=== PATIENT | male | born 1955 | race Hispanic/Latino ===

== ENCOUNTER 2019-07-25 19:07 | Emergency (ER) | payer OTHER ==
--- NOTE | 2019-07-25 20:39 | Event Note ---
ED Screening Note ED Screening Note: sp fall yesterday w r side pain ambulatory nad This initial assessment/diagnostic orders/clinical plan/treatment(s) is/are subject to change based on patients health status, clinical progression and re- assessment by fellow clinical providers in the ED. Further treatment and workup at subsequent clinical providers discretion. Patient/guardian urged not to elope from the ED as their condition may be serious if not clinically assessed and managed. Initial orders include: needs exam in ACC
[2019-07-25] MEDS ORDERED: HYDROcodone/ACETAMINOPHEN 5-325 MG TAB PO ONE (21:33)
--- NOTE | 2019-07-25 21:40 | Emergency Department Report ---
ED Fall HPI - General Chief Complaint: Fall Stated Complaint: RT SIDE PAIN FROM FALL Time Seen by Provider: 07/25/19 20:03 Source: patient Mode of arrival: Ambulatory - History of Present Illness Initial Comments: 64-year-old male with history of hypertension and prostate cancer presents with complaints of right rib pain and headache after a fall around 3 AM last night. Patient states he slipped and fell in the bathroom and hitting his ribs on the side effects in his head on the floor. He denies any loss of consciousness, dizziness, chest pain/shortness of breath, numbness/tingling/weakness, neck pain, nausea/vomiting, vision changes, difficulty with ambulation, or abdominal pain. He rates his rib pain as a 10/10 in severity and states that worsens with deep inspiration. He rates his headache as a 7/10 in severity. He denies any blood thinners. MD Complaint: fall -: Sudden Fall Witnessed: no Place Fall Occurred: home Loss of Consciousness: none Prolonged Down Time?: no Symptoms Prior to Fall: none Location: head, other (right ribs) Associated Symptoms: denies: neck pain, numbness, weakness, chest paint, shortness of breath, abdominal pain, hematuria, lightheaded, vertigo, confusion - Related Data Previous Rx's Medication Instructions Recorded Last Taken Type Acetaminophen/Codeine [Tylenol 1 tab PO Q8H PRN #10 tab 07/26/19 Unknown Rx /Codeine # 3 tab] Naproxen [Naprosyn TAB] 500 mg PO BID PRN #14 tablet 07/26/19 Unknown Rx methOCARBAMOL [Robaxin TAB] 1,500 mg PO Q8H PRN #30 tablet 07/26/19 Unknown Rx Allergies Allergy/AdvReac Type Severity Reaction Status Date / Time No Known Allergies Allergy Unverified 07/25/19 19:36 ED Review of Systems ROS: Stated complaint: RT SIDE PAIN FROM FALL Other details as noted in HPI Constitutional: denies: chills, fever Eyes: denies: vision change ENT: denies: hearing loss, epistaxis Respiratory: denies: cough, shortness of breath Cardiovascular: denies: chest pain, palpitations, edema, syncope Gastrointestinal: denies: abdominal pain, nausea, vomiting, constipation Genitourinary: denies: frequency, hematuria Musculoskeletal: denies: back pain, joint swelling Skin: denies: rash, lesions Neurological: headache. denies: weakness, numbness, paresthesias, confusion, abnormal gait Psychiatric: denies: auditory hallucinations, visual hallucinations Hematological/Lymphatic: denies: easy bleeding, easy bruising ED Past Medical Hx - Past Medical History Previous Medical History?: Yes Hx Hypertension: Yes Hx of Cancer: Yes (Prostate) - Surgical History Past Surgical History?: Yes Additional Surgical History: Left humerus - Social History Smoking Status: Never Smoker Substance Use Type: None - Medications Home Medications: Home Medications Medication Instructions Recorded Confirmed Last Taken Type Acetaminophen/Codeine [Tylenol 1 tab PO Q8H PRN #10 tab 07/26/19 Unknown Rx /Codeine # 3 tab] Naproxen [Naprosyn TAB] 500 mg PO BID PRN #14 tablet 07/26/19 Unknown Rx methOCARBAMOL [Robaxin TAB] 1,500 mg PO Q8H PRN #30 tablet 07/26/19 Unknown Rx ED Physical Exam - General Limitations: No Limitations General appearance: alert, in no apparent distress - Head Head exam: Present: atraumatic, normocephalic - Eye Eye exam: Present: normal appearance, PERRL, EOMI. Absent: scleral icterus - Neck Neck exam: Present: normal inspection, full ROM. Absent: tenderness - Respiratory Respiratory exam: Present: normal lung sounds bilaterally, chest wall tenderness (tenderness to palpation noted of right lower lateral ribs. No bruising noted). Absent: respiratory distress - Cardiovascular Cardiovascular Exam: Present: regular rate, normal rhythm. Absent: systolic murmur, diastolic murmur, rubs, gallop - GI/Abdominal GI/Abdominal exam: Present: soft, normal bowel sounds. Absent: distended, tenderness, guarding, rebound, rigid - Extremities Exam Extremities exam: Present: normal inspection, full ROM. Absent: tenderness - Back Exam Back exam: Present: normal inspection. Absent: paraspinal tenderness, vertebral tenderness - Neurological Exam Neurological exam: Present: alert, oriented X3, normal gait. Absent: motor sensory deficit - Expanded Neurological Exam Expanded Speech: Present: fluid speech Cranial nerves: Facial Sensation: Normal Cerebellar function: Finger to Nose: Normal, Heel to Panye: Normal, Romberg: Normal Sensory exam: Upper Extremity Light Touch: Normal, Lower Extremity Light Touch: Normal Motor strength exam: RUE: 5 - Psychiatric Psychiatric exam: Present: normal affect, normal mood - Skin Skin exam: Present: warm, dry, intact, normal color. Absent: rash, cyanosis, ecchymosis ED Course Vital Signs 07/25/19 07/25/19 19:19 22:31 Temperature 98.7 F Pulse Rate 98 H 63 Respiratory 20 17 Rate Blood Pressure 184/89 Blood Pressure 162/78 [Left] O2 Sat by Pulse 97 100 Oximetry ED Medical Decision Making - Radiology Data Radiology results: report reviewed CT HEAD WITHOUT CONTRAST INDICATION: fall with head injury and headache. TECHNIQUE: All CT scans at this location are performed using CT dose reduction for ALARA by means of automated exposure control. COMPARISON: None available. FINDINGS: HEMORRHAGE: None. EXTRA-AXIAL SPACES: Normal in size and morphology for the patient's age. VENTRICULAR SYSTEM: Normal in size and morphology for the patient's age. BRAIN PARENCHYMA: No acute findings. MIDLINE SHIFT OR HERNIATION: None. ORBITS: Normal as visualized. SOFT TISSUES OF HEAD: Normal. CALVARIUM: Normal. VISUALIZED PARANASAL SINUSES AND MASTOID AIR CELLS: Clear. ADDITIONAL FINDINGS: None. IMPRESSION: 1. No acute intracranial abnormality. RIGHT RIB SERIES 5 VIEWS INDICATION: lateral rib pain after fall. COMPARISON: No relevant prior imaging study available. FINDINGS: On the included chest radiograph, no pulmonary contusion or hemopneumothorax is seen. There are mildly displaced fractures through the anterolateral right seventh- 11th ribs. IMPRESSION: 1. Mildly displaced anterolateral right seventh-11th rib fractures. - Medical Decision Making 64-year-old male with history of hypertension and prostate cancer presents with complaints of right rib pain and headache after a fall around 3 AM last night. Patient states he slipped and fell in the bathroom and hitting his ribs on the side effects in his head on the floor. CT head is negative for acute findings. Neuro exam is normal. Headache has completely resolved with meds given per pt. Rib x-ray shows Mildly displaced anterolateral right seventh- 11th rib fractures. Pulse ox is normal and patient is not tachycardic. Patient is nontoxic appearing and stable for discharge home. Recommend follow-up with orthopedics within 3 days. Discussed the importance of deep inspiration to prevent atelectasis and pneumonia. Also discussed very strict return precautions in detail with patient and patient's family who verbalize understanding. Critical care attestation.: If time is entered above; I have spent that time in minutes in the direct care of this critically ill patient, excluding procedure time. ED Disposition Clinical Impression: Ribs, multiple fractures Qualifiers: Encounter type: initial encounter Fracture type: closed Laterality: right Qualified Code(s): S22.41XA - Multiple fractures of ribs, right side, initial encounter for closed fracture Head injury Qualifiers: Encounter type: initial encounter Qualified Code(s): S09.90XA - Unspecified injury of head, initial encounter Disposition: TO HOME OR SELFCARE Is pt being admited?: No Condition: Stable Instructions: Concussion (ED), Rib Fracture (ED) Prescriptions: Naproxen [Naprosyn TAB] 500 mg PO BID PRN #14 tablet PRN Reason: pain methOCARBAMOL [Robaxin TAB] 1,500 mg PO Q8H PRN #30 tablet PRN Reason: Muscle Spasm Acetaminophen/Codeine [Tylenol /Codeine # 3 tab] 1 tab PO Q8H PRN #10 tab PRN Reason: Pain , Severe (7-10) Referrals: JASMYNE OSMAN MD [Staff Physician] - 3-5 Days LINWOOD LINDER [Primary Care Provider] - 3-5 Days
--- NOTE | 2019-07-25 23:16 | XRay Report ---
RIGHT RIB SERIES 5 VIEWS INDICATION: lateral rib pain after fall. COMPARISON: No relevant prior imaging study available. FINDINGS: On the included chest radiograph, no pulmonary contusion or hemopneumothorax is seen. There are mildly displaced fractures through the anterolateral right seventh-11th ribs. IMPRESSION: 1. Mildly displaced anterolateral right seventh-11th rib fractures. Signer Name: Pasha Ford MD Signed: 07/25/2019 11:12 PM Workstation Name: [id number]
--- NOTE | 2019-07-25 23:27 | Cat Scan Report ---
CT HEAD WITHOUT CONTRAST INDICATION: fall with head injury and headache. TECHNIQUE: All CT scans at this location are performed using CT dose reduction for ALARA by means of automated e xposure control. COMPARISON: None available. FINDINGS: HEMORRHAGE: None. EXTRA-AXIAL SPACES: Normal in size and morphology for the patient's age. VENTRICULAR SYSTEM: Normal in size and morphology for the patient's age. BRAIN PARENCHYMA: No acute findings. MIDLINE SHIFT OR HERNIATION: None. ORBITS: Normal as visualized. SOFT TISSUES OF HEAD: Normal. CALVARIUM: Normal. VISUALIZED PARANASAL SINUSES AND MASTOID AIR CELLS: Clear. ADDITIONAL FINDINGS: None. IMPRESSION: 1. No acute intracranial abnormality. Signer Name: Pasha Ford MD Signed: 07/25/2019 11:22 PM Workstation Name: [id number]
[2019-07-25] MEDS ORDERED: KETOROLAC 30 MG/1 ML INJ IM ONE (23:52)
[2019-07-25] MEDS ORDERED: BUTALB/ACETAMINOPHEN/CAFFEINE TAB PO ONE (23:53)
[2019-07-26 01:33] VITALS: BP 148/66
== END 2019-07-26 01:32 | disposition home or self-care (01) ==
LOC: ED 19:07
DX: S22.41XA Multiple fractures of ribs, right side, initial encounter for closed fracture (principal); S09.90XA Unspecified injury of head, initial encounter; I10 Essential (primary) hypertension; Z85.46 Personal history of malignant neoplasm of prostate; W01.198A Fall on same level from slipping, tripping and stumbling with subsequent striking against other object, initial encounter; Y93.89 Activity, other specified; Y92.89 Other specified places as the place of occurrence of the external cause; Y99.8 Other external cause status
CPT/HCPCS: 70450; 71101; 96372; 99284; J1885